=== PATIENT | male | born 1995 | race Caucasian/White ===

== ENCOUNTER 2024-02-23 19:42 | Emergency (ER) | payer OTHER, SELFPAY ==
[2024-02-23 19:42] VITALS: BP 133/70; PULSE 90; RESP 16; TEMP 36.6; O2SAT 99; BMI 33.7
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
--- NOTE | 2024-02-23 21:25 | RAD_ITS ---
EXAM: XR LEFT TIBIA AND FIBULA, 1 VIEW CLINICAL INDICATION: pain TECHNIQUE: Frontal or lateral views of the left tibia and fibula. COMPARISON: No relevant prior studies available. FINDINGS: BONES/JOINTS: Unremarkable. No acute fracture. No dislocation. SOFT TISSUES: Unremarkable. No radiopaque foreign body. RAD/Tibia & Fibula 2 Views IMPRESSION: Negative left tibia and fibula x-ray. Electronically Signed: Carlos Acuna MD at 22:07 EDT ,
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
[2024-02-23] MEDS: Diphth,Pertuss(Acell),Tet Vac 0.5 ML Vial IM (21:32)
[2024-02-23 21:42] VITALS: BP 130/70; PULSE 83; RESP 16; O2SAT 97
[2024-02-23 23:12] VITALS: BP 132/68; PULSE 80; RESP 16; TEMP 36.6; O2SAT 98
== END 2024-02-23 23:13 | disposition home or self-care (01) ==
PROVIDERS: Emergency Provider Emergency Medicine; Visit Provider Emergency Medicine
DX: S80.12XA Contusion of left lower leg, initial encounter (principal); S09.90XA Unspecified injury of head, initial encounter; S50.811A Abrasion of right forearm, initial encounter; S50.812A Abrasion of left forearm, initial encounter; V80.52XA Occupant of animal-drawn vehicle injured in collision with other specified motor vehicle, initial encounter; Z23 Encounter for immunization
CPT/HCPCS: 70450; 73590; 90471; 90715; 99282